=== PATIENT | male | born 1985 | race Hispanic/Latino ===

== ENCOUNTER 2018-01-17 15:18 | Emergency (ER) | payer BC ==
[2018-01-17 15:49] LABS: #Lymphocytes 2.8 thou/uL (1.20-3.40); #Neutrophils 11.2 thou/uL (1.40-6.50); %Basophils 0.2 % (0.0-1.0); %Lymphocytes 18.5 % (21.0-51.0); %Monocytes 6.6 % (0.0-10.0); %Neutrophils 74.6 % (42.0-75.0); Hemoglobin 16.2 g/dL (14.0-18.0); Mean Corpuscular HGB CONC 34.8 g/dL (32.0-36.0); Mean Platelet Volume 7.1 fL (7.4-10.4); Platelet Count 248 thou/uL (130-400); RBC Distribution Width 11.4 % (11.5-14.5); Red Blood Cell (RBC) Count 5.24 mill/uL (4.70-6.10); White Blood Cell (WBC) Count 15.1 thou/uL (4.8-10.8)
[2018-01-17] MEDS ORDERED: Morphine 4 MG/ML VIAL ONE (15:49)
[2018-01-17] MEDS ORDERED: Ondansetron HCl/PF 4 MG/2 ML Vial ONE (15:49)
[2018-01-17] MEDS ORDERED: Ketorolac Tromethamine 30 MG/ML VIAL ONE (16:16)
[2018-01-17 16:30] LABS: Acetaminophen Less than 6.0 mcg/mL (10.0-30.0); Alcohol 86 mg/dL (Less than 10); Salicylate Less than 8.0 mg/dL (15.0-30.0)
--- NOTE | 2018-01-17 16:30 | CT ---
HEAD CT WITHOUT CONTRAST: 01/17/18 COMPARISON: None. HISTORY: Intoxication, head trauma, pain. TECHNIQUE: Serial axial CT imaging at 5 mm intervals from vertex through skull base without contrast. FINDINGS: There is prominent lateral right temporal scalp swelling. No associated calvarial fracture. No intrac ranial hemorrhage, midline shift or mass effect. Imaged paranasal sinuses appear unremarkable. IMPRESSION: Lateral right temporal scalp swelling. No associated fracture or intracranial hemorrhage. POS: [facility]
[2018-01-17 16:31] LABS: ALT (SGPT) 34 U/L (8-55); AST (SGOT) 61 U/L (5-34); Albumin 4.8 g/dL (3.5-5.0); Alkaline Phosphatase 72 U/L (40-150); Anion Gap 18 mmol/L (10-20); BUN (Urea Nitrogen) 7 mg/dL (8.9-20.6); Calc. Creatinine Clearance 0 mL/min (70-130); Calcium 9.6 mg/dL (7.8-10.44); Carbon Dioxide 21 mmol/L (22-29); Chloride 104 mmol/L (98-107); Estimated GFR-MDRD Greater than 90; Globulin 3.5 g/dL (2.4-3.5); Glucose 105 mg/dL (70-105); Potassium 3.7 mmol/L (3.5-5.1); Protein, Total 8.3 g/dL (6.0-8.3); Sodium 139 mmol/L (136-145)
--- NOTE | 2018-01-17 16:33 | CT ---
CT OF THE FACIAL BONES 01/17/18 COMPARISON: None. HISTORY: Fall, trauma, pain. TECHNIQUE: Serial axial CT imaging at 2.5 mm intervals through the facial bones without contrast. Coronal reform atted imaging obtained. FINDINGS: Bilateral nondisplaced nasal bone fractures. Mild mucosal thickening of ethmoid air cells, sphenoid s inuses and maxillary sinuses. Zygomatic arches and pterygoid plates intact. No mandibular fracture. N o dislocation of the temporomandibular joints. There is soft tissue swelling in the infraorbital region on the right. The lymphoid tissue of Waldeyer's ring is prominent, a nonspecific finding. Coronal imaging demonstra evelyn no evidence for a fracture of the orbital floor or medial orbital wall on either side. IMPRESSION: Bilateral nasal bone fractures. Soft tissue swelling. Additional incidental findings as above. POS: [facility]
[2018-01-17 18:36] LABS: Bilirubin Negative (Negative); Blood, Urine Negative (Negative); Clarity CLEAR (Clear); Glucose, Urine (Dipstick) Negative (Negative); Leukocyte Negative (Negative); Nitrite Negative (Negative); Protein, Urine (Dipstick) 30 mg/dL (Neg-Trace); Specific Gravity, Urine 1.025 (1.002-1.036); Urobilinogen 0.2 mg/dL (0.2-1.0)
[2018-01-17 18:39] LABS: Bacteria/HPF None Seen HPF (None Seen); Hyaline Casts/LPF 4-6 HYALINE CAST LPF (0-3 Hyaline); Pathc Cast-AUWi Flag 0.58 (0-2.49); RBC/HPF 0-3 HPF (0-3); Squamous Epithelial 0-3 HPF (0-3); WBC/HPF None Seen HPF (0-3)
[2018-01-17] MEDS ORDERED: Acetaminophen 500 MG TAB ONE (18:41)
[2018-01-17 18:48] LABS: Renal Epithelial None Seen HPF (0-3); Transitional Epithelial NONE SEEN HPF (0-3)
[2018-01-17 18:54] LABS: Amphetamine Not Detected (NotDetected); Barbiturates Screen Not Detected (NotDetected); Benzodiazepine Screen Not Detected (NotDetected); Cocaine Metabolite Screen Detected (NotDetected); Medtox Control Line Valid? VALID (VALID); Medtox Reader # READER 1; Methadone Not Detected (NotDetected); Methamphetamine Not Detected (NotDetected); Opiate Screen Detected (NotDetected); Oxycodone Screen Not Detected (NotDetected); Phencyclidine (PCP) Not Detected (NotDetected); THC/Cannabinoid Screen Detected (NotDetected); Tricyclic Screen Not Detected (NotDetected)
== END 2018-01-17 19:37 | disposition home or self-care (01) ==
LOC: ERS 15:18
DX: S02.2XXA Fracture of nasal bones, initial encounter for closed fracture (principal); F10.129 Alcohol abuse with intoxication, unspecified; F32.9 Major depressive disorder, single episode, unspecified; W22.8XXA Striking against or struck by other objects, initial encounter
CPT/HCPCS: 70450; 70486; 80053; 80306; 80307; 81003; 81015; 84443; 85025; 93005; 96361; 96374; 96375; J1885; J2270; J2405